=== PATIENT | male | born 1995 | race Caucasian/White ===

== ENCOUNTER 2019-01-29 10:10 | Emergency (ER) | payer SELFPAY ==
[~2019-01-29] VITALS: Ht 182.9 cm; Wt 79.4 kg
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
--- NOTE | 2019-01-29 10:28 | NUR ---
SEEN AND EXAMINED BY
[2019-01-29] MEDS ORDERED: LORAZEPAM INJ 2 MG/ML VIAL IM ONE (10:30)
[2019-01-29] MEDS ORDERED: HALOPERIDOL LACTATE INJ 5 MG/ML VIAL ONE (10:30)
[2019-01-29] MEDS ORDERED: LORAZEPAM INJ 2 MG/ML VIAL ONE (10:30)
[2019-01-29] MEDS ORDERED: HALOPERIDOL LACTATE INJ 5 MG/ML VIAL IM ONE (10:30)
--- NOTE | 2019-01-29 10:53 | NUR ---
ASPNET DEVELOPER AT BEDSIDE FOR XRAY.
[2019-01-29] MEDS ORDERED: KETAMINE HCL (500MG/10ML) 50 MG/ML VIAL ONE (11:16)
[2019-01-29] MEDS ORDERED: KETAMINE HCL(200MG/20ML) 10 MG/ML VIAL IM ONE (11:30)
[2019-01-29 15:00] VITALS: BP 142/88
--- NOTE | 2019-01-29 15:00 | NUR ---
PT AWAKE AND ALERT, AAOX4, NOT IN RESPIRATORY DISTRESS, V/S STABLE, KEPT RESTED AND COMFORTABLE, WILL CONTINUE TO MONITOR.
--- NOTE | 2019-01-29 15:18 | NUR ---
Patient eloped from facility. ER MD notified.
== END 2019-01-29 15:20 | disposition left against medical advice (07) ==
LOC: ER 10:15
DX: F28 Other psychotic disorder not due to a substance or known physiological condition (principal); F19.10 Other psychoactive substance abuse, uncomplicated
CPT/HCPCS: 71045; 96372 ×2; 99284; J1630; J2060; J3490